=== PATIENT | female | born 1995 | race Caucasian/White ===

== ENCOUNTER 2018-01-01 11:33 | Outpatient (CLI) | payer OTHER ==
--- NOTE | 2018-01-01 12:12 | Non Stress Test Report ---
Non Stress Test Datetime Report Generated by CPN: 01/01/2018 12:12 DEMOGRAPHIC EGA NST: 36.3 INDICATION Indication for Study: Ordered by Provider MONITORING Monitor Explained: Monitor Explained; Test Explained; Patient Verbalized Understanding Time on Monitor: 01/01/2018 11:48 Time off Monitor: 01/01/2018 12:10 NST Duration: 22 NST INTERVENTIONS NST Interventions: None Physician Notified NST: A Pitts CNM BABY A: [id number] BABY A Movement : Present Contraction Frequency : 1-2.5 FHR Baseline : 150 Accelerations : 15X15 Decelerations : None Variability : Moderate 6-25bpm NST Review: Meets Criteria for Reactive NST NST Review and Verified By : MONIKA England Results: Reactive NST REPORT Report Trigger: Send Report
[2018-01-01 12:30] LABS: APPEARANCE,URINE CLEAR; BILIRUBIN,URINE NEGATIVE (NEGATIVE); COLOR,URINE STRAW; GLUCOSE, URINE NEGATIVE (NEGATIVE); KETONES,URINE NEGATIVE (NEGATIVE); LEUKOCYTE ESTERASE,URINE NEGATIVE (NEGATIVE); NITRITE,URINE NEGATIVE (NEGATIVE); PROTEIN,URINE NEGATIVE (NEGATIVE); URINE SPECIFIC GRAVITY 1.004; UROBILINOGEN,URINE NEGATIVE mg/dL (<2.0)
[2018-01-01 13:07] LABS: URINE AMPHETAMINES SCREEN NEGATIVE; URINE BARBITURATES SCREEN NEGATIVE; URINE BENZODIAZEPINES SCREEN NEGATIVE; URINE COCAINE SCREEN NEGATIVE; URINE MARIJUANA (THC) SCREEN NEGATIVE; URINE METHADONE SCREEN NEGATIVE
[2018-01-01 13:25] LABS: URINE PHENCYCLIDINE SCREEN NEGATIVE
== END 2018-01-01 12:45 | disposition home or self-care (01) ==
LOC: LC 11:33
PROVIDERS: ATTEND Obstetrics & Gynecology
PROC: 4A1HXCZ Monitoring of Products of Conception, Cardiac Rate, External Approach (ICD-10-PCS; principal; 2018-01-01)
DX: O47.03 False labor before 37 completed weeks of gestation, third trimester (principal); Z3A.36 36 weeks gestation of pregnancy
CPT/HCPCS: 59025; 80307; 81001

== ENCOUNTER 2018-01-13 12:52 | Outpatient (CLI) | payer OTHER ==
[2018-01-13 13:23] LABS: APPEARANCE,URINE CLEAR; BILIRUBIN,URINE NEGATIVE (NEGATIVE); COLOR,URINE YELLOW; GLUCOSE, URINE 150 mg/dL (NEGATIVE); KETONES,URINE NEGATIVE (NEGATIVE); LEUKOCYTE ESTERASE,URINE NEGATIVE (NEGATIVE); NITRITE,URINE NEGATIVE (NEGATIVE); PROTEIN,URINE NEGATIVE (NEGATIVE); URINE SPECIFIC GRAVITY 1.011; UROBILINOGEN,URINE NEGATIVE mg/dL (<2.0)
[2018-01-13 13:47] LABS: URINE AMPHETAMINES SCREEN NEGATIVE; URINE BARBITURATES SCREEN NEGATIVE; URINE BENZODIAZEPINES SCREEN NEGATIVE; URINE COCAINE SCREEN NEGATIVE; URINE MARIJUANA (THC) SCREEN NEGATIVE; URINE METHADONE SCREEN NEGATIVE; URINE PHENCYCLIDINE SCREEN NEGATIVE
== END 2018-01-13 14:40 | disposition home or self-care (01) ==
LOC: LC 12:52
PROVIDERS: ATTEND Obstetrics & Gynecology
PROC: 4A1HXCZ Monitoring of Products of Conception, Cardiac Rate, External Approach (ICD-10-PCS; principal; 2018-01-13)
DX: O47.1 False labor at or after 37 completed weeks of gestation (principal); Z3A.38 38 weeks gestation of pregnancy
CPT/HCPCS: 59025; 80307; 81005

== ENCOUNTER 2018-01-23 10:16 | Outpatient (CLI) | payer OTHER ==
--- NOTE | 2018-01-23 10:19 | Non Stress Test Report ---
Non Stress Test Datetime Report Generated by CPN: 01/23/2018 10:19 DEMOGRAPHIC EGA NST: 38.1 INDICATION Indication for Study: Ordered by Provider MONITORING Monitor Explained: Monitor Explained; Test Explained; Patient Verbalized Understanding Time on Monitor: 01/13/2018 13:04 Time off Monitor: 01/13/2018 14:29 NST Duration: 85 NST INTERVENTIONS NST Interventions: PO Hydration; Reposition Patient Physician Notified NST: Dr. Andre BABY A: [id number] BABY A Movement : Present Contraction Frequency : irregular FHR Baseline : 140 Accelerations : 15X15 Decelerations : None Variability : Moderate 6-25bpm NST Review: Meets Criteria for Reactive NST NST Review and Verified By : Anoop Cruz RNC NST Results: Reactive NST REPORT Report Trigger: Send Report
[2018-01-23 10:55] LABS: APPEARANCE,URINE SLIGHTLY-CLOUDY; BILIRUBIN,URINE NEGATIVE (NEGATIVE); COLOR,URINE YELLOW; GLUCOSE, URINE NEGATIVE (NEGATIVE); KETONES,URINE NEGATIVE (NEGATIVE); LEUKOCYTE ESTERASE,URINE TRACE (NEGATIVE); NITRITE,URINE NEGATIVE (NEGATIVE); PROTEIN,URINE NEGATIVE (NEGATIVE); URINE SPECIFIC GRAVITY 1.005; UROBILINOGEN,URINE NEGATIVE mg/dL (<2.0)
[2018-01-23 11:24] LABS: URINE AMPHETAMINES SCREEN NEGATIVE; URINE BARBITURATES SCREEN NEGATIVE; URINE BENZODIAZEPINES SCREEN NEGATIVE; URINE COCAINE SCREEN NEGATIVE; URINE MARIJUANA (THC) SCREEN NEGATIVE; URINE METHADONE SCREEN NEGATIVE; URINE PHENCYCLIDINE SCREEN NEGATIVE
[2018-01-23] MEDS ORDERED: HYDROXYZINE PAMOATE 50 MG CAPSULE ONE (11:43)
--- NOTE | 2018-01-23 12:19 | Non Stress Test Report ---
Non Stress Test Datetime Report Generated by CPN: 01/23/2018 12:19 DEMOGRAPHIC EGA NST: 39.4 INDICATION Indication for Study: Ordered by Provider Indication for Study (NST) Other: Labor Check MONITORING Monitor Explained: Monitor Explained; Test Explained; Patient Verbalized Understanding Time on Monitor: 01/23/2018 10:27 Time off Monitor: 01/23/2018 11:44 NST Duration: 77 NST INTERVENTIONS NST Interventions: PO Hydration; Reposition Patient Physician Notified NST: Dr. Moreno BABY A Movement : Present Contraction Frequency : 5-7 Accelerations : 15X15 Decelerations : None Variability : Moderate 6-25bpm NST Review: Meets Criteria for Reactive NST NST Review and Verified By : Charito Arredondo RN NST Results: Reactive NST REPORT Report Trigger: Send Report
== END 2018-01-23 11:46 | disposition home or self-care (01) ==
LOC: LC 10:16
PROVIDERS: ATTEND Obstetrics & Gynecology
PROC: 4A1HXCZ Monitoring of Products of Conception, Cardiac Rate, External Approach (ICD-10-PCS; principal; 2018-01-23)
DX: O47.1 False labor at or after 37 completed weeks of gestation (principal); Z3A.39 39 weeks gestation of pregnancy
CPT/HCPCS: 59025; 80307; 81005

== ENCOUNTER 2018-01-23 18:27 | Inpatient (IN) | payer OTHER ==
[2018-01-23] MEDS ORDERED: RINGERS SOLUTION,LACTATED 300 ML IV ONE (19:23)
[2018-01-23] MEDS ORDERED: RINGERS SOLUTION,LACTATED 1,000 ML IV PRN (19:23)
[2018-01-23 19:31] LABS: ABSOLUTE LYMPHOCYTES (AUTO) 1.2 10^3/uL (0.5-4.7); ABSOLUTE MONOCYTES (AUTO) 0.6 10^3/uL (0.1-1.4); ABSOLUTE NEUT (AUTO) 9.7 10^3/uL (1.7-8.2); BASOPHILS % (AUTO) 0.2 % (0-2); EOSINOPHILS % (AUTO) 0.2 % (0-6); HEMATOCRIT 32.7 % (36.0-47.0); HEMOGLOBIN 11.2 g/dL (12.0-15.5); LYMPHOCYTES % (AUTO) 10.3 % (13-45); MEAN CORPUSCULAR HEMOGLOBIN 28.9 pg (27.0-33.4); MEAN CORPUSCULAR HGB CONC 34.3 g/dL (32.0-36.0); MEAN CORPUSCULAR VOLUME 84 fl (80-97); MONOCYTES % (AUTO) 5.6 % (3-13); PLATELET COUNT 249 10^3/uL (150-450); RED BLOOD COUNT 3.88 10^6/uL (3.72-5.28); RED CELL DISTRIBUTION WIDTH 13.5 % (11.5-14.0); SEGMENTED NEUTROPHILS % (AUTO) 83.7 % (42-78); TOTAL CELLS COUNTED % (AUTO) 100 %; WHITE BLOOD COUNT 11.5 10^3/uL (4.0-10.5)
[2018-01-23] MEDS ORDERED: MISOPROSTOL 0.2 MG TABLET ONE (20:18)
[2018-01-23] MEDS ORDERED: LIDOCAINE 1% INJ-PF (10 MG/ML) 30 ML SDV ONE (20:18)
[2018-01-23] MEDS ORDERED: OXYTOCIN/NORMAL SALINE 20 UNIT/1,000 ML RTUINJ ONE (20:18)
[2018-01-23 21:57] LABS: APPEARANCE,URINE CLEAR; BILIRUBIN,URINE NEGATIVE (NEGATIVE); COLOR,URINE STRAW; GLUCOSE, URINE NEGATIVE (NEGATIVE); KETONES,URINE NEGATIVE (NEGATIVE); LEUKOCYTE ESTERASE,URINE NEGATIVE (NEGATIVE); NITRITE,URINE NEGATIVE (NEGATIVE); PROTEIN,URINE NEGATIVE (NEGATIVE); URINE SPECIFIC GRAVITY 1.005; UROBILINOGEN,URINE NEGATIVE mg/dL (<2.0)
[2018-01-23 22:11] LABS: URINE AMPHETAMINES SCREEN NEGATIVE; URINE BARBITURATES SCREEN NEGATIVE; URINE BENZODIAZEPINES SCREEN NEGATIVE; URINE COCAINE SCREEN NEGATIVE; URINE MARIJUANA (THC) SCREEN NEGATIVE; URINE METHADONE SCREEN NEGATIVE; URINE PHENCYCLIDINE SCREEN NEGATIVE
[2018-01-24] MEDS ORDERED: NALBUPHINE HCL INJ 10 MG/1 ML AMPULE INJ ONE (01:42)
[2018-01-24] MEDS ORDERED: PROMETHAZINE HCL INJ 25 MG/1 ML VIAL IV ONE (01:42)
[2018-01-24] MEDS ORDERED: NALBUPHINE HCL INJ 10 MG/1 ML AMPULE ONE (01:48)
[2018-01-24] MEDS ORDERED: PROMETHAZINE HCL INJ 25 MG/1 ML VIAL ONE (01:48)
[2018-01-24] MEDS ORDERED: OXYTOCIN/NORMAL SALINE 20 UNIT/1,000 ML RTUINJ IV PRN ×2 (03:00→08:48)
[2018-01-24] MEDS ORDERED: EPHEDRINE SULFATE INJ 50 MG/1 ML AMPULE ONE (05:04)
[2018-01-24] MEDS ORDERED: FENTANYL/BUPIVACAINE/NS/PF 300 MCG/150 ML RTUINJ EPI ONE (05:05)
[2018-01-24] MEDS ORDERED: BUPIVACAINE HCL 0.25 % INJ/PF (2.5 MG/1 ML) 30 ML VIAL ONE (05:05)
--- NOTE | 2018-01-24 06:23 | Admission Physical ---
Datetime Report Generated by CPN: 01/24/2018 06:23 CURRENT ADMISSION Chief Complaint: Uterine Contractions Indication for Induction: Not Applicable Admit Impression : Term, Intrauterine ; Active Labor Admit Plan: Admit to Unit ALLERGIES Medication Allergies: No Medication Allergies: No Known Allergies (01/23/2018) Latex: No Latex Allergies OBSTETRICAL HISTORY EDC: 01/26/2018 00:00 : 1 Para: 0 Term: 0 : 0 SAB: 0 IAB: 0 Ectopic: 0 Livin Cesareans: 0 VBACs: 0 Multiple Births: 0 Gestational Diabetes: No Rh Sensitization: No Incompetent Cervix: No IZA: No Infertility: No ART Treatment: No Uterine Anomaly: No IUGR: No Hx Previous C/S: No Macrosomia: No Hx Loss/Stillborn: No PIH: No Hx : No Placenta Previa/Abruption: No Depression/PP Depression: No PTL/PROM: No Post Hemorrhage: No Current Procedures: Ultrasound; NST Obstetrical History Comments: G1 - Current SEE RECORDS Alcohol: No Marijuana : No Cocaine: No Other Illicit Drugs: No Cigarettes: Never Smoker. [id number] MEDICAL HISTORY Diabetes: No Blood Transfusion: No Pulmonary Disease (Asthma, TB): No Breast Disease: No Hypertension: No Licensed Pharmacist Surgery: No Heart Disease: No Hosp/Surgery: No Autoimmune Disorder: No Anesthetic Complications: No Kidney Disease: No Abnormal Pap Smear: No Neuro/Epilepsy: No Psychiatric Disorders: No Other Medical Diseases: No Hepatitis/Liver Disease: No Significant Family History: No Varicosities/Phlebitis: No Trauma/Violence : No Thyroid Dysfunction: No INFECTIOUS HISTORY Gonorrhea: No Genital Herpes: No Chlamydia: No Tuberculosis: No Syphilis: No Hepatitis: No HIV/AIDS Exposure: No Rash or Viral Illness: No HPV: No PHYSICAL EXAM General: Normal HEENT: Normal Neurologic: Normal Thyroid: Normal Heart: Normal Lungs: Normal Breast: Normal Back: Normal Abdomen: Normal Genitourinary Exam: Normal Extremities: Normal DTRs: Normal Pelvic Type: Adequate VAGINAL EXAM Dilatation: 3 Effacement: 80 Station: -2 Contraction Comments: 4-8min MEMBRANES Membranes: Intact Amniotic Fluid Color: Clear FETUS A EGA: 39.5 Monitoring: External US FHR- Baseline: 140 Variability: Moderate 6-25bpm Accelerations: 15X15 Decelerations: None PLANS FOR LABOR AND DELIVERY Labor and Delivery: None Pain Management: Natural Feeding Preference: Breast Benefit of Breast Feed Discussed: Yes Circumcision: N/A INFORMED CONSENT Informed Consent Obtained: Vaginal Delivery Signature: with User ID: [email or web address] : I personally evaluated and examined the patient in conjunction with the MLP and agree with the assessment, treatment plan and disposition.
[2018-01-24] MEDS ORDERED: PROMETHAZINE HCL 25 MG SUPP.RECT PR PRN (08:48)
[2018-01-24] MEDS ORDERED: ACETAMINOPHEN 650 MG SUPP.RECT PR PRN (08:48)
[2018-01-24] MEDS ORDERED: GLYCERIN/WITCH HAZEL LEAF 1 EACH MED..PAD TP PRN (08:48)
[2018-01-24] MEDS ORDERED: NA PHOS,M-B/NA PHOS,DI-BA (ADULT) 133 ML ENEMA PR PRN (08:48)
[2018-01-24] MEDS ORDERED: DIPH/PERTUSS(ACELL)/TETANUS VAC/PF 0.5 ML SYR (>=10YO) IM PRN (08:48)
[2018-01-24] MEDS ORDERED: ACETAMINOPHEN WITH CODEINE #3 TABLET PO PRN (08:48)
[2018-01-24] MEDS ORDERED: DIBUCAINE 1% OINTMENT 28 GM TP PRN (08:48)
[2018-01-24] MEDS ORDERED: PROMETHAZINE HCL INJ 25 MG/1 ML VIAL IV PRN (08:48)
[2018-01-24] MEDS ORDERED: PSEUDOEPHEDRINE HCL 30 MG TABLET PO PRN (08:48)
[2018-01-24] MEDS ORDERED: MEASLES,MUMPS&RUBELLA VACC/PF 0.5 ML VIAL SUBCUT PRN (08:48)
[2018-01-24] MEDS ORDERED: ZOLPIDEM TARTRATE 5 MG TABLET PO PRN (08:48)
[2018-01-24] MEDS ORDERED: MAGNESIUM HYDROXIDE SUSP 30 ML UDCUP PO PRN (08:48)
[2018-01-24] MEDS ORDERED: PROMETHAZINE HCL 25 MG TABLET PO PRN (08:48)
[2018-01-24] MEDS ORDERED: BENZOCAINE/MENTHOL AEROSOL SPRAY 56 ML TOP PRN (08:48)
[2018-01-24] MEDS ORDERED: DIPHENHYDRAMINE HCL 25 MG CAPSULE PO PRN (08:48)
--- NOTE | 2018-01-24 13:03 | Delivery Summary ---
Del Sum A-C Datetime Report Generated by CPN: 01/24/2018 13:03 DELIVERY PERSONNEL DELIVERY PERSONNEL: [id number] Delivery Doctor:: Elida Powell MD Labor and Delivery Nurse:: Janice Morin RNwinery worker Nurse:: Anna Arredondo RN Video Software Engineer/CREDIT CONTROL CLERK: Jeanette VanBeekom, RAW SCALES OPERATOR MATERNAL INFORMATION Delivery Anesthesia: Epidural Medications After Delivery: Pitocin Drip 20 Units/1000ml NSS Estimated Blood Loss (ml): 200 Maternal Complications: None LABOR SUMMARY EDC: 01/26/2018 00:00 No. Babies in Womb: 1 Attempted: No Labor Anesthesia: Epidural LABOR INFORMATION Reason for Induction: Not Applicable Onset of Labor: 01/24/2018 22:42 Complete Dilatation: 01/24/2018 06:17 Oxytocin: Augmentation Group B Beta Strep: Negative Antibiotics # of Doses: 0 Steroids Given: None Reason Steroids Not Administered: Not Applicable MEMBRANES Membranes Rupture Method: Spontaneous Rupture of Membranes: 01/24/2018 07:58 Length of Rupture (hr): 0.62 Amniotic Fluid Color: Clear Amniotic Fluid Amount: Small Amniotic Fluid Odor: Normal STAGES OF LABOR Stage 1 hr: -16 Stage 1 min: -25 Stage 2 hr: 2 Stage 2 min: 18 Stage 3 hr: 0 Stage 3 min: 3 Total Time in Labor hr: -14 Total Time in Labor min: -4 VAGINAL DELIVERY Episiotomy: None Laceration #1: None Laceration Extension #1: N/A Laceration Repair: Not Applicable Sponge Count Correct: Yes Sharps Count Correct: Yes CSECTION DELIVERY Primary Indication: N/A Secondary Indication: N/A CSection Incidence: N/A Labor: N/A Elective: N/A CSection Incision: N/A BABY A INFORMATION Infant Delivery Date/Time: 01/24/2018 08:35 Method of Delivery: Vaginal Born in Route : No : N/A Forceps: N/A Vacuum Extraction: N/A Shoulder Dystocia : No PRESENTATION/POSITION BABY A Presentation: Cephalic Cephalic Presentation: Vertex Vertex Position: Left Occipital Anterior Breech Presentation: N/A PLACENTA INFORMATION BABY A Placenta Delivery Time : 01/24/2018 08:38 Placenta Method of Delivery: Spontaneous Placenta Status: Delivered SCORES BABY A Heart Rate 1 min: >100 bpm Resp Effort 1 min: Good Cry Reflex Irritability 1 min: Cough or Sneeze or Pulls Away Muscle Tone 1 min: Active Motion Color 1 min: Body [place], Extremities Blue Resuscitation Effort 1 min: Tactile Stimulation SCORE 1 MIN: 9 Heart Rate 5 min: >100 bpm Resp Effort 5 min: Good Cry Reflex Irritability 5 min: Cough or Sneeze or Pulls Away Muscle Tone 5 min: Active Motion Color 5 min: Body [place], Extremities Blue SCORE 5 MIN: 9 INFORMATION BABY A Gestational Age at Delivery: 39.5 Gestational Status: Full Term- 39- 40.6 Weeks Outcome : Liveborn Infant Condition : Stable Sex: Female IDENTIFICATION BABY A Verification Date/Time: 01/24/2018 09:04 ID Band Number: [id number] Mother's Name Verified: Yes RN Verifying Infant: B Baidy RN/H Patience RN WEIGHT/LENGTH BABY A Infant Birthweight (gm): 3320 Weight (lb): 7 Weight (oz): 5 Length (in): 20.00 Length (cm): 50.80 CORD INFORMATION BABY A No. Cord Vessels: 3 Nuchal Cord : N/A Cord Blood Taken: Yes-For Eval (Mom's Blood Type - or O+) Infant Suction: Mouth ASSESSMENT BABY A Infant Complications: Multiple Variable Decels Physical Findings at Delivery: Within Normal Limits Respirations: Appears Normal Store Stock Associate/ALS Called : No Infant Care By: Charito Arredondo RN Transferred To: Remains with Mother BABY B INFORMATION : N/A SIGNATURES Signature: with User ID: [email or web address] : I was personally available for consultation and serving as supervising physician for the MLP. : I personally evaluated and examined the patient in conjunction with the MLP and agree with the assessment, treatment plan and disposition.
[2018-01-24] MEDS: DOCUSATE SODIUM 100 MG CAPSULE PO SCH ×2 (13:08→18:18)
[2018-01-24] MEDS: PRENATAL VITAMIN W DHA CAPSULE PO SCH (13:08)
[2018-01-24] MEDS: FAMOTIDINE 20 MG TABLET PO SCH ×2 (13:08→22:09)
[2018-01-24] MEDS: SENNOSIDES/DOCUSATE 8.6-50 MG 1 EACH TABLET PO SCH (13:08)
[2018-01-24] MEDS: FERROUS SULFATE 325 MG TABLET PO SCH ×2 (13:08→18:18)
[2018-01-24] MEDS: IBUPROFEN 800 MG TABLET PO SCH ×2 (14:45→22:08)
[2018-01-25] MEDS: IBUPROFEN 800 MG TABLET PO SCH ×3 (05:21→21:41)
[2018-01-25] MEDS: ACETAMINOPHEN WITH CODEINE #3 TABLET PO PRN (06:30)
[2018-01-25 07:00] LABS: HEMATOCRIT 31.4 % (36.0-47.0); HEMOGLOBIN 10.7 g/dL (12.0-15.5); MEAN CORPUSCULAR HEMOGLOBIN 28.9 pg (27.0-33.4); MEAN CORPUSCULAR VOLUME 85 fl (80-97); PLATELET COUNT 220 10^3/uL (150-450); RED BLOOD COUNT 3.69 10^6/uL (3.72-5.28); RED CELL DISTRIBUTION WIDTH 13.7 % (11.5-14.0)
--- NOTE | 2018-01-25 09:41 | PDOC PROGRESS REPORT ---
Subjective-OB Progress Note for:: 01/25/18 Subjective: reports bleeding slowing, pain controlled with current meds. denies needs Physical Exam (OB) Vital Signs: Temp Pulse Resp BP Pulse Ox 97.7 F 66 16 124/78 98 01/25/18 07:50 01/25/18 07:50 01/25/18 07:50 01/25/18 07:50 01/25/18 07:50 Intake & Output 01/24/18 01/25/18 01/26/18 06:59 06:59 06:59 Intake Total 500 Balance 500 Weight 67.8 kg - Abdomen Description: Soft Hernia Present: No Fundal Description: Firm, Midline Fundal Height: u/u - u/2 - Abdominal Distension: No distension Tenderness: Nontender - Extremities Lower extremities: Manoj's sign - neg Calf: Normal, Nontender Objective-Diagnostic Laboratory: 01/25/18 06:46 01/25/18 06:46 WBC 13.0 H RBC 3.69 L Hgb 10.7 L Hct 31.4 L MCV 85 MCH 28.9 MCHC 34.0 RDW 13.7 Plt Count 220 Assessment and Plan(PN) - Time Spent with Patient Time with patient: Less than 15 minutes - Disposition Anticipated Discharge: Home Within: within 24 hours
[2018-01-25] MEDS: SENNOSIDES/DOCUSATE 8.6-50 MG 1 EACH TABLET PO SCH (10:18)
[2018-01-25] MEDS: DOCUSATE SODIUM 100 MG CAPSULE PO SCH ×2 (10:18→18:54)
[2018-01-25] MEDS: PRENATAL VITAMIN W DHA CAPSULE PO SCH (10:18)
[2018-01-25] MEDS: FERROUS SULFATE 325 MG TABLET PO SCH ×2 (10:18→18:54)
[2018-01-25] MEDS: FAMOTIDINE 20 MG TABLET PO SCH ×2 (10:19→21:41)
[2018-01-26] MEDS: IBUPROFEN 800 MG TABLET PO SCH ×2 (05:35→14:12)
[2018-01-26] MEDS: FERROUS SULFATE 325 MG TABLET PO SCH (09:42)
[2018-01-26] MEDS: DOCUSATE SODIUM 100 MG CAPSULE PO SCH (09:42)
[2018-01-26] MEDS: FAMOTIDINE 20 MG TABLET PO SCH (09:42)
[2018-01-26] MEDS: SENNOSIDES/DOCUSATE 8.6-50 MG 1 EACH TABLET PO SCH (09:42)
[2018-01-26] MEDS: PRENATAL VITAMIN W DHA CAPSULE PO SCH (09:42)
--- NOTE | 2018-01-26 10:01 | PDOC PROGRESS REPORT ---
Subjective-OB Progress Note for:: 01/26/18 Subjective: Doing well, ready to go home, breast feeding, voiding Physical Exam (OB) Vital Signs: Temp Pulse Resp BP Pulse Ox 98.2 F 93 16 131/78 H 96 01/25/18 20:10 01/25/18 20:10 01/25/18 20:10 01/25/18 20:10 01/25/18 20:10 Intake & Output 01/25/18 01/26/18 01/27/18 06:59 06:59 06:59 Intake Total 500 240 Balance 500 240 - PIH/Pre-Eclampsia Clonus: Negative Headache: Absent Epigastric Pain: No Visual Changes: No - Lochia Lochia Amount: Small 10-25 ml Lochia Color: Rubra/Red - Abdomen Description: Tender, Soft, Flat Hernia Present: No Fundal Description: Firm, Midline Fundal Height: u/u - u/2 Objective-Diagnostic Laboratory: 01/25/18 06:46 Assessment and Plan(PN) - Assessment and Plan (1) Delivery normal Is this a current diagnosis for this admission?: Yes - Time Spent with Patient Time with patient: Less than 15 minutes Medications reviewed and adjusted accordingly: Yes - Disposition Anticipated Discharge: Home Within: Other - home today
--- NOTE | 2018-01-26 10:04 | PDOC DISCHARGE SUMMARY ---
Final Diagnosis Discharge Date: 01/26/18 - Final Diagnosis (1) Delivery normal Is this a current diagnosis for this admission?: Yes Discharge Data - Discharge Medication Home Medications: Ibuprofen [Motrin 800 mg Tablet] 800 mg PO Q8 tablet 01/26/18 Vit/Dha [ Multi + Dha Capsule] 1 cap PO DAILY capsule Gestational Age: 39.5 Reason(s) for Admission: Onset of Labor Procedures: Ultrasound Intrapartum Procedure(s): Spontaneous Vaginal Delivery - Data Baby 1 Female at 1 minute: 9 at 5 minutes: 9 Weight: 3.317 kg - Diagnosis Test Laboratory: Temp Pulse Resp BP Pulse Ox 98.2 F 93 16 131/78 H 96 01/25/18 20:10 01/25/18 20:10 01/25/18 20:10 01/25/18 20:10 01/25/18 20:10 01/23/18 01/23/18 01/25/18 18:29 19:15 06:46 RBC 3.88 3.69 L Hgb 11.2 L 10.7 L Hct 32.7 L 31.4 L Urine Opiates Screen NEGATIVE - Discharge information/Instructions Discharge Activity: Activity As Tolerated, No Lifting Over 10 Pounds, No Lifting /Push/Pulling, Pelvic Rest Discharge Diet: As Tolerated, Regular Disposition: HOME, SELF-CARE Follow up with: [facility] in: 4, Weeks
[2018-01-26] MEDS: ACETAMINOPHEN WITH CODEINE #3 TABLET PO PRN (14:43)
--- NOTE | 2018-01-26 15:24 | PDOC PROGRESS REPORT ---
Subjective-OB Progress Note for:: 01/26/18 Subjective: C/O of severe pain in lower abd, started 30 minutes ago as pt was being discharged, anxious and did not tolerate fundal massage, scant lochia Physical Exam (OB) Vital Signs: Temp Pulse Resp BP Pulse Ox 98.2 F 93 16 118/62 96 01/26/18 12:44 01/26/18 12:44 01/26/18 12:44 01/26/18 12:44 01/26/18 12:44 Intake & Output 01/25/18 01/26/18 01/27/18 06:59 06:59 06:59 Intake Total 500 240 500 Balance 500 240 500 Baby 1 Female 3.317 kg - PIH/Pre-Eclampsia Clonus: Negative Headache: Absent Epigastric Pain: No Visual Changes: No - Lochia Lochia Amount: Small 10-25 ml Lochia Color: Rubra/Red - Abdomen Description: Tender, Soft, Flat Hernia Present: No Fundal Description: Firm, Midline Fundal Height: u/u - u/2 Abdomen Note: pain in lower abd around fundus, did not tolerate fundal exam, scant lochia - Genitourinary Genitourinary Note: denies signs of UTI, no dysuria Objective-Diagnostic Laboratory: 01/25/18 06:46 Assessment and Plan(PN) - Assessment and Plan (1) Delivery normal Is this a current diagnosis for this admission?: Yes (2) Pelvic pain Is this a current diagnosis for this admission?: Yes - Time Spent with Patient Time with patient: Less than 15 minutes Medications reviewed and adjusted accordingly: Yes - Disposition Anticipated Discharge: Home Within: within 24 hours - Sono of pelvis for pelvic pain, restart IV, CBC,CMP, BUN, Creat, notify Dr. Powell of POC, cancel Discharge, start antibiotics, possible endometritis
[2018-01-26] MEDS ORDERED: BISACODYL 10 MG SUPP.RECT PR ONE (18:00)
[2018-01-26] MEDS ORDERED: AMPICILLIN SOD/SULBACTAM 3 GM VIAL IV SCH (18:00)
--- NOTE | 2018-01-26 18:10 | RADIOLOGY REPORT (SQ) ---
EXAM DESCRIPTION: U/S NON-OB PELVIS W/O DOP COMPLETED DATE/TIME: 01/26/2018 5:57 pm REASON FOR STUDY: 2 day pp sudden pelvic pain COMPARISON: None. TECHNIQUE: Dynamic and static grayscale images acquired of the pelvis via transabdominal approach an d recorded on PACS. Additional selected color Doppler and spectral images recorded. LIMITATIONS: None. FINDINGS: UTERUS: Expected appearance. ENDOMETRIAL STRIPE: Mild generalized thickening, expected appearance. CERVIX: No nabothian cysts. RIGHT OVARY AND DOPPLER: Ovary not visualized. LEFT OVARY AND DOPPLER: Ovary not visualized. FREE FLUID: None noted. OTHER: No other significant finding. MEASUREMENTS: UTERUS: 15.5 x 11 x 10 cm ENDOMETRIAL STRIPE: 1.1 cm RIGHT OVARY: Not visualized. LEFT OVARY: Not visualized. IMPRESSION: Expected appearance. Nonvisualized ovaries. TECHNICAL DOCUMENTATION: JOB ID: [id number] [place]-[id number] 2010 [employer]- All Rights Reserved Rev-11/20 Reading location - IP/workstation name: [email or web address]
[2018-01-26] MEDS ORDERED: AMPICILLIN SODIUM/SULBACTAM NA 3 GM in NORMAL SALINE 100 ML IV SCH (21:00)
[2018-01-26 21:39] VITALS: BP 123/77
== END 2018-01-26 22:42 | disposition home or self-care (01) | DRG 775 ==
LOC: LC 18:27 → LR 19:25 → 2S 01-24 11:22
PROVIDERS: ADMIT Obstetrics & Gynecology; ATTEND Obstetrics & Gynecology
PROC: 10E0XZZ Delivery of Products of Conception, External Approach (ICD-10-PCS; principal; 2018-01-24)
PROC: 4A1HXCZ Monitoring of Products of Conception, Cardiac Rate, External Approach (ICD-10-PCS; 2018-01-24)
DX: O76 Abnormality in fetal heart rate and rhythm complicating labor and delivery (principal); O99.89 Other specified diseases and conditions complicating pregnancy, childbirth and the puerperium; R10.2 Pelvic and perineal pain; Z3A.39 39 weeks gestation of pregnancy; Z37.0 Single live birth
CPT/HCPCS: 36415; 76856; 80307; 81005; 85025; 85027; 86592; 86850; 86900; 86901; J0295; J2300; J2550; J2590; J3010; J3490